=== PATIENT | male | born 1975 | race Caucasian/White ===

== ENCOUNTER 2017-06-11 08:02 | Emergency (ER) | payer OTHER ==
[2017-06-11 08:05] VITALS: BP 166/98; PULSE 70; RESP 22; TEMP 98.1
[2017-06-11] MEDS ORDERED: ONDANSETRON ODT 4 MG TAB PO STA (08:28)
[2017-06-11] MEDS ORDERED: HYDROmorphone 2 MG/ML 1 ML SYRINGE IM STA (08:28)
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
== END 2017-06-11 09:15 | disposition home or self-care (01) ==
LOC: EC 08:02
DX: H66.93 Otitis media, unspecified, bilateral (principal); J34.89 Other specified disorders of nose and nasal sinuses; R05 Cough; R09.89 Other specified symptoms and signs involving the circulatory and respiratory systems; R11.2 Nausea with vomiting, unspecified; R51 Headache; E78.5 Hyperlipidemia, unspecified; I10 Essential (primary) hypertension; I25.10 Atherosclerotic heart disease of native coronary artery without angina pectoris; I25.2 Old myocardial infarction; Z87.891 Personal history of nicotine dependence; Z79.01 Long term (current) use of anticoagulants; Z79.82 Long term (current) use of aspirin; Z79.899 Other long term (current) drug therapy; Z91.018 Allergy to other foods; Z91.048 Other nonmedicinal substance allergy status; Z86.718 Personal history of other venous thrombosis and embolism; Z86.79 Personal history of other diseases of the circulatory system; Z87.39 Personal history of other diseases of the musculoskeletal system and connective tissue
CPT/HCPCS: 99282; 96372; J1170